=== PATIENT | male | born 1970 | race Caucasian/White ===

== ENCOUNTER 2017-01-15 05:40 | Inpatient (IN) | payer OTHER ==
[~2017-01-15] VITALS: Ht 175.3 cm; Wt 70.2 kg
[2017-01-15] MEDS ORDERED: SODIUM CHLORIDE 0.9% 1L BAG IV* STA (06:48)
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
[2017-01-15] MEDS ORDERED: VANCOMYCIN 1 GM (PMX) 250 ML IVPB ONE (07:00)
--- NOTE | 2017-01-15 07:16 | RADRPT ---
PROCEDURE: XR Chest. CLINICAL INDICATION: chest pain, fever TECHNIQUE: Single frontal view of the chest was obtained COMPARISON: None FINDINGS: The heart and mediastinum are within normal limits. There is a 6 mm nodular opacity overlying the left lower lobe. There is no pleural effusion or pneumothorax. RPTAT: AA IMPRESSION: 6 mm nodular opacity overlying the left lower lobe. It may represent a nipple shadow versus a third nodule. Repeat frontal chest x-ray with nipple markers recommended. .Gopi Aponte MD, MD Date Time Electronically viewed and signed by .Gopi Aponte MD, on 01/15/2017 07:15 .S/
--- NOTE | 2017-01-15 07:22 | RADRPT ---
PROCEDURE: XR Calcaneous. CLINICAL INDICATION: Pain TECHNIQUE: Two views of the right calcaneus were performed. COMPARISON: CR FOOT 11/03/2016 FINDINGS: There is soft tissue swelling posterior to the right calcaneus. There is air in the subcutaneous soft tissues with a focal skin ulceration. There is no evidence of periosteal reaction There is no acute fracture. RPTAT: AA IMPRESSION: Soft tissue swelling with a focal ulceration in the skin in the posterior right calcaneus. No evidence of periosteal reaction. Further evaluation with MRI is recommended to rule out osteomyelitis. .Gopi Aponte MD, Date Time Electronically viewed and signed by .Gopi Aponte MD, on 01/15/2017 07:21 .S/
[2017-01-15 08:23] LABS: BASOPHILS % 0.3 % (0.0-2.0); EOSINOPHILS % 0.1 % (0.0-7.0); HEMATOCRIT 35.7 % (42.0-52.0); HEMOGLOBIN 12.1 g/dl (14.0-18.0); LYMPHOCYTES # 0.8 10^3/ul (0.8-2.9); LYMPHOCYTES % 7.5 % (15.0-51.0); MEAN CORPUSCULAR HEMOGLOBIN 30.3 pg (29.0-33.0); MEAN CORPUSCULAR HGB CONC 33.9 g/dl (32.0-37.0); MEAN CORPUSCULAR VOLUME 89.3 fl (82.0-101.0); MONOCYTE # 0.7 10^3/ul (0.3-0.9); MONOCYTES % 6.3 % (0.0-11.0); NEUTROPHIL # 8.9 10^3/ul (1.6-7.5); NEUTROPHILS % 85.5 % (39.0-77.0); PLATELET COUNT 210 10^3/UL (140-415); RED CELL DISTRIBUTION WIDTH 12.1 % (11.5-14.5); WHITE BLOOD COUNT 10.4 10^3/ul (4.8-10.8)
[2017-01-15] MEDS ORDERED: CEFTRIAXONE 1 GM/50 ML (PMX) 50 ML IVPB ONE (08:30)
[2017-01-15 09:29] LABS: ALBUMIN 3.8 g/dl (3.3-4.9); BILIRUBIN,INDIRECT 0.5 mg/dl (0-1.1); BILIRUBIN,TOTAL 0.5 mg/dl (0.2-1.3); CALCIUM 8.8 mg/dl (8.4-10.2); CREATININE 1.12 mg/dl (0.61-1.24); POTASSIUM 4.6 mmol/L (3.5-5.1); TOTAL PROTEIN 7.6 g/dl (6.1-8.1)
[2017-01-15 09:50] LABS: ADD UMIC YES; UR ASCORBIC ACID NEGATIVE (NEGATIVE); UR BILIRUBIN (Dip) NEGATIVE (NEGATIVE); UR BLOOD (Dip) NEGATIVE (NEGATIVE); UR CLARITY CLEAR (CLEAR); UR COLOR YELLOW (YELLOW); UR GLUCOSE (Dip) 3+ mg/dL (NEGATIVE); UR KETONES (Dip) NEGATIVE (NEGATIVE); UR LEUKOCYTE ESTERASE (Dip) NEGATIVE Leu/ul (NEGATIVE); UR NITRITE (Dip) NEGATIVE (NEGATIVE); UR RBC 3 /HPF (0-5); UR SPECIFIC GRAVITY (Dip) 1.015 (1.003-1.030); UR TOTAL PROTEIN (Dip) 2+ mg/dl (NEGATIVE); UR UROBILINOGEN (Dip) NEGATIVE (NEGATIVE)
[2017-01-15 09:53] VITALS: PULSE 89; TEMP 98.2
[2017-01-15] MEDS ORDERED: ACETAMINOPHEN 325 MG TAB PO PRN (10:00)
[2017-01-15] MEDS ORDERED: ONDANSETRON 4 MG INJ IV PRN ×2 (10:00→12:30)
[2017-01-15 10:40] VITALS: BP 131/79; RESP 18
[2017-01-15 11:14] VITALS: Ht 175.3 cm; Wt 70.2 kg
[2017-01-15] MEDS ORDERED: Gabapentin PO (12:27)
[2017-01-15] MEDS ORDERED: Humalog SQ (12:27)
[2017-01-15] MEDS ORDERED: loratadine (12:27)
[2017-01-15] MEDS ORDERED: Multivitamin PO (12:27)
[2017-01-15] MEDS ORDERED: midodrine PO (12:27)
[2017-01-15] MEDS ORDERED: LANT3I SC (12:27)
[2017-01-15] MEDS ORDERED: morphine 2 MG INJ IV PRN (12:30)
[2017-01-15] MEDS ORDERED: BISACODYL (EC) 5 MG TAB PO PRN (12:30)
[2017-01-15] MEDS ORDERED: NACL 0.9% 3 ML SYG IV SCH (12:30)
[2017-01-15] MEDS ORDERED: GLUCOSE GEL 15 GRAM TUBE PO PRN ×2 (13:00)
[2017-01-15] MEDS ORDERED: VANCOMYCIN IV PER PHARMACY XX SCH (13:00)
[2017-01-15] MEDS ORDERED: GLUCOSE GEL 15 GRAM TUBE BUCCAL PRN (13:00)
[2017-01-15] MEDS ORDERED: DEXTROSE 50% 50 ML SYRINGE IV PRN ×2 (13:00)
[2017-01-15] MEDS ORDERED: GLUCAGON 1 MG INJ IM PRN (13:00)
[2017-01-15] MEDS: GABAPENTIN 300 MG CAP PO SCH ×2 (14:33→20:27)
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
[2017-01-15] MEDS: VANCOMYCIN 1 GM in NS 250 ML IVPB SCH (14:42)
[2017-01-15] MEDS: SOD CHLORIDE 0.45% 1,000 ML IV SCH (14:44)
[2017-01-15 14:50] VITALS: BP 136/71; RESP 20
--- NOTE | 2017-01-15 15:27 | RADRPT ---
PROCEDURE: XR Chest. CLINICAL INDICATION: Fever. Possible lung nodule or nipple shadow seen on prior chest x-ray. TECHNIQUE: Single frontal view obtained with nipple markers. COMPARISON: Prior chest x-ray done earlier the same day. FINDINGS: The 0.6 cm nodular density overlying the left lower lung zone is due to a nipple shadow. There is no other pulmonary nodule. The lungs are otherwise clear. The heart size is normal. There is no pleural effusion. There is no pneumothorax. IMPRESSION: 1. Normal chest radiograph. 2. The density seen on prior chest x-ray is due to a left nipple shadow. RPTAT: QQ .Aaron Amezquita MD, MD Date Time Electronically viewed and signed by .Aaron Amezquita MD, on 01/15/2017 15:26 .R/
[2017-01-15] MEDS: MIDODRINE 5 MG TAB PO SCH (17:00)
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
[2017-01-15] MEDS: PIPER-TAZO 3.375 GM IV (PMX) 100 ML IVPB SCH (17:18)
[2017-01-15] MEDS: INSULIN ASPART [NOVOLOG] 3 ML PEN SC SCH ×2 (18:03→20:28)
[2017-01-15 19:39] VITALS: BP 133/76; RESP 18
[2017-01-15] MEDS: INSULIN GLARGINE [LANtus] 3 ML PEN SC SCH (20:29)
[2017-01-16] MEDS: PIPER-TAZO 3.375 GM IV (PMX) 100 ML IVPB SCH ×3 (00:05→12:10)
[2017-01-16 01:54] VITALS: BP 130/68; RESP 18
[2017-01-16] MEDS: ACCU-CHEK XX SCH ×2 (02:00)
[2017-01-16] MEDS: VANCOMYCIN 1 GM in NS 250 ML IVPB SCH ×2 (02:19→14:13)
[2017-01-16] MEDS: SOD CHLORIDE 0.45% 1,000 ML IV SCH ×3 (04:48→19:06)
[2017-01-16 06:25] LABS: BASOPHILS % 0.4 % (0.0-2.0); EOSINOPHILS % 0.3 % (0.0-7.0); HEMATOCRIT 31.5 % (42.0-52.0); HEMOGLOBIN 10.6 g/dl (14.0-18.0); LYMPHOCYTES # 1.5 10^3/ul (0.8-2.9); LYMPHOCYTES % 16.5 % (15.0-51.0); MEAN CORPUSCULAR HEMOGLOBIN 30.1 pg (29.0-33.0); MEAN CORPUSCULAR HGB CONC 33.7 g/dl (32.0-37.0); MEAN CORPUSCULAR VOLUME 89.5 fl (82.0-101.0); MONOCYTE # 0.9 10^3/ul (0.3-0.9); MONOCYTES % 10.1 % (0.0-11.0); NEUTROPHIL # 6.7 10^3/ul (1.6-7.5); NEUTROPHILS % 72.4 % (39.0-77.0); PLATELET COUNT 188 10^3/UL (140-415); RED BLOOD COUNT 3.52 10^6/ul (4.70-6.10); RED CELL DISTRIBUTION WIDTH 12.3 % (11.5-14.5); WHITE BLOOD COUNT 9.3 10^3/ul (4.8-10.8)
[2017-01-16 06:43] LABS: ALBUMIN 2.9 g/dl (3.3-4.9); ALBUMIN/GLOBULIN RATIO 0.87; BILIRUBIN,INDIRECT 0.3 mg/dl (0-1.1); BILIRUBIN,TOTAL 0.3 mg/dl (0.2-1.3); CALCIUM 7.9 mg/dl (8.4-10.2); CREATININE 1.21 mg/dl (0.61-1.24); POTASSIUM 4.2 mmol/L (3.5-5.1); TOTAL PROTEIN 6.2 g/dl (6.1-8.1)
[2017-01-16 07:44] VITALS: BP 115/65; RESP 18
[2017-01-16] MEDS: INSULIN ASPART [NOVOLOG] 3 ML PEN SC SCH ×4 (08:13→20:32)
[2017-01-16] MEDS: GABAPENTIN 300 MG CAP PO SCH ×3 (08:15→20:24)
[2017-01-16] MEDS: MULTIVITAMINS/MINERALS TAB PO SCH (08:15)
[2017-01-16] MEDS: LORATADINE 10 MG TAB PO SCH (08:15)
[2017-01-16] MEDS: MIDODRINE 5 MG TAB PO SCH ×2 (08:15→17:00)
[2017-01-16] MEDS: ENOXAPARIN 40 MG/0.4 ML SYG SC SCH (08:17)
[2017-01-16 08:56] VITALS: BP 99/56; RESP 18
[2017-01-16 14:05] VITALS: BP 142/80; RESP 20
[2017-01-16] MEDS ORDERED: LEVOFLOXACIN 500 MG TAB PO ONE (14:30)
--- NOTE | 2017-01-16 15:16 | PN ---
Date/Time of Note Date/Time of Note DATE: 01/16/17 TIME: 15:16 Assessment/Plan VTE Prophylaxis VTE Prophylaxis Intervention: heparin Lines/Catheters IV Catheter Type (from Nrs): Peripheral IV Assessment/Plan Chief Complaint/Hosp Course Patient is a 46-year-old male past medical history of ulcer myelitis who presents with subjective fevers. Admitted for possible new onset osteomyelitis Subjective fever, monitoring Bilateral foot ulcers , right heel and left dorsal aspect acute on chronic Hypertension Diabetes mellitus History of osteo-myelitis Diabetic neuropathy Cataracts Plan -IV antibiotics, ID has been consulted -X-ray is not conclusive, will order MRI -We will continue home meds as able -Blood cultures has been taken -Wound cultures if possible -As needed pain medications -We will monitor and dispose accordingly -If no osteomyelitis, likely DC patient back to outpatient wound care. dispo: still pending Mri Problems: Subjective 24 Hr Interval Summary Free Text/Dictation feels well Exam/Review of Systems Vital Signs Vitals Vital Signs Date Time Temp Pulse Resp B/P Pulse Ox O2 Delivery O2 Flow Rate FiO2 01/16/17 14:05 98.3 80 20 142/80 99 01/15/17 09:53 Room Air Intake and Output 01/15/17 01/15/17 01/16/17 15:00 23:00 07:00 Intake Total 2050 ml 1730 ml 1150 ml Output Total 350 ml 600 ml Balance 2050 ml 1380 ml 550 ml Exam Physical exam General: Patient is laying in bed and answers questions appropriately Mentation: Patient is alert and oriented 4, Head: Normocephalic atraumatic Eyes: EOMI, pupils reactive to light Neck: Supple, nontender, midline Respiratory: Clear to auscultation bilaterally Cardiovascular: regular rate, no obvious murmurs Gastrointestinal: non-tender to palpation, bowel sounds heard. Neurological: Moves all extremities spontaneously Skin: L foot dorsal aspect ulcer, non purulent. R foot heel area ulcer, non- purulent. Results Result Diagram: 01/16/1738 01/16/1738 Results 24 hrs Laboratory Tests Test 01/15/17 17:50 01/15/17 20:26 01/16/17 05:38 01/16/17 07:54 Bedside Glucose 142 175 76 White Blood Count 9.3 Red Blood Count 3.52 L Hemoglobin 10.6 L Hematocrit 31.5 L Mean Corpuscular Volume 89.5 Mean Corpuscular Hemoglobin 30.1 Mean Corpuscular Hemoglobin Concent 33.7 Red Cell Distribution Width 12.3 Platelet Count 188 Mean Platelet Volume 10.0 Neutrophils % 72.4 Lymphocytes % 16.5 Monocytes % 10.1 Eosinophils % 0.3 Basophils % 0.4 Nucleated Red Blood Cells % 0.0 Neutrophils # 6.7 Lymphocytes # 1.5 Monocytes # 0.9 Eosinophils # 0.0 Basophils # 0.0 Nucleated Red Blood Cells # 0.0 Erythrocyte Sedimentation Rate 38.0 H Sodium Level 137 Potassium Level 4.2 Chloride Level 107 Carbon Dioxide Level 27 Anion Gap 7 #L Blood Urea Nitrogen 20 # Creatinine 1.21 Glucose Level 74 # Hemoglobin A1c 6.5 H Calcium Level 7.9 L Total Bilirubin 0.3 Direct Bilirubin 0.00 Indirect Bilirubin 0.3 Aspartate Amino Transf (AST/SGOT) 21 Alanine Aminotransferase (ALT/SGPT) 37 Alkaline Phosphatase 72 C-Reactive Protein 5.0 H Total Protein 6.2 # Albumin 2.9 L Globulin 3.30 H Albumin/Globulin Ratio 0.87 Test 01/16/17 12:04 Bedside Glucose 115 Medications Medications Current Medications Influenza Virus Vaccine (Fluzone) 0.5 ml ONCE ONCE IM* ; Start 01/17/17 at 09: 00; Stop 01/17/17 at 09:01 Ondansetron HCl (Zofran Inj) 4 mg Q6H PRN IV NAUSEA AND/OR VOMITING; Start 01/15/17 at 12:30 Morphine Sulfate (morphine) 2 mg Q4H PRN IV SEVERE PAIN LEVEL 7-10; Start 01/15 at 12:30 Bisacodyl (Dulcolax) 5 mg DAILY PRN PO CONSTIPATION; Start 01/15/17 at 12:30 Enoxaparin Sodium (Lovenox) 40 mg DAILY SC Last administered on 01/16/17t 08: 17; Admin Dose 40 MG; Start 01/16/17 at 09:00 Diagnostic Test (Pha) (Accu-Chek) 1 ea 02 XX ; Start 01/16/17 at 02:00 Insulin Glargine (Lantus) 12 unit QHS SC Last administered on 01/15/17t 20:29; Admin Dose 12 UNIT; Start 01/15/17 at 21:00 Diagnostic Test (Pha) (Accu-Chek) 1 ea 02 XX ; Start 01/16/17 at 02:00 Gabapentin (Neurontin) 300 mg TID PO Last administered on 01/16/17 12:11; Admin Dose 300 MG; Start 01/15/17 at 13:00 Midodrine (Proamatine) 5 mg BID@ PO Last administered on 01/16/17 08:15 ; Admin Dose 5 MG; Start 01/15/17 at 17:00 Loratadine (Claritin) 10 mg DAILY PO Last administered on 01/16/17 08:15; Admin Dose 10 MG; Start 01/16/17 at 09:00 Multivitamins/ Minerals (Theragran-M) 1 tab DAILY PO Last administered on 01/16 08:15; Admin Dose 1 TAB; Start 01/16/17 at 09:00 Miscellaneous Information 1 ea NOTE XX ; Start 01/15/17 at 13:00 Glucose (Glutose) 15 gm Q15M PRN PO DECREASED GLUCOSE; Start 01/15/17 at 13:00 Glucose (Glutose) 22.5 gm Q15M PRN PO DECREASED GLUCOSE; Start 01/15/17 at 13: 00 Dextrose (D50w Syringe) 25 ml Q15M PRN IV DECREASED GLUCOSE; Start 01/15/17 at 13:00 Dextrose (D50w Syringe) 50 ml Q15M PRN IV DECREASED GLUCOSE; Start 01/15/17 at 13:00 Glucagon (Glucagen) 1 mg Q15M PRN IM DECREASED GLUCOSE; Start 01/15/17 at 13:00 Glucose 15 gm 15 gm Q15M PRN BUCCAL DECREASED GLUCOSE; Start 01/15/17 at 13:00 Vancomycin HCl 250 ml @ 125 mls/hr Q12H IVPB Last administered on 01/16/17 14:13; Admin Dose 125 MLS/HR; Start 01/15/17 at 14:00 Sodium Chloride (1/2 NS) 1,000 ml @ 70 mls/hr [id number] IV Last administered on 01/16/17 12:10; Admin Dose 70 MLS/HR; Start 01/15/17 at 14:30 Miscellaneous Information (*Rx Drug Level Order Reminder*) 1 ONCE ONCE XX ; Start 01/17/17 at 01:00; Stop 01/17/17 at 01:01 Levofloxacin (Levaquin) 500 mg DAILY@06 PO ; Start 01/16/17 at 14:27 EDWAR ELAM Jan 16, 2017 15:16
--- NOTE | 2017-01-16 16:01 | PN ---
DATE: 01/16/2017 INFECTIOUS DISEASE PROGRESS NOTE SUBJECTIVE: No events overnight. The patient is alert, feels better. Looks comfortable, no fevers . WBC 9.3, no shift. ESR 38, BUN 20, creatinine 1.21. MICROBIOLOGY: Blood and urine culture negative. ANTIMICROBIALS: The patient is on: 1. Zosyn. 2. Vancomycin. PHYSICAL EXAMINATION: GENERAL: Well-developed, well-nourished, middle-aged man who is alert, in no distress. HEENT: Head atraumatic, normocephalic. Sclerae anicteric. Buccal mucosa pink. NECK: Supple. CHEST: Rise symmetrical. Breath sounds clear. HEART: S1, S2. ABDOMEN: Soft. Bowel tones present. EXTREMITIES: Bilateral lower extremity dressings intact. ASSESSMENT: 1. Bilateral lower extremity ulcerations with a history of skin graft on his left foot. 2. Hypertension. 3. Diabetes. 4. History of osteomyelitis. PLAN: The patient remains stable. We will continue him on vancomycin, change Zosyn to Levaquin. A wait for final cultures and podiatry evaluation. Dictated By: EDWIN SCOTT FURNACE SETTER for CHRISTOPHER OLEARY MD NI/NTS Conf#: [id number] DID#: [id number]
[2017-01-16] MEDS: LEVOFLOXACIN 500 MG TAB PO SCH (16:16)
[2017-01-16 19:27] VITALS: BP 143/80; RESP 18
[2017-01-16] MEDS: INSULIN GLARGINE [LANtus] 3 ML PEN SC SCH (20:32)
[2017-01-17 01:45] VITALS: BP 121/70; RESP 18
[2017-01-17] MEDS: VANCOMYCIN 1 GM in NS 250 ML IVPB SCH ×2 (01:58→14:38)
[2017-01-17] MEDS: ACCU-CHEK XX SCH ×2 (01:59)
[2017-01-17] MEDS: LEVOFLOXACIN 500 MG TAB PO SCH (05:43)
[2017-01-17 06:25] LABS: CREATININE 1.21 mg/dl (0.61-1.24)
[2017-01-17] MEDS: INSULIN ASPART [NOVOLOG] 3 ML PEN SC SCH ×4 (08:05→20:40)
[2017-01-17] MEDS: LORATADINE 10 MG TAB PO SCH (08:07)
[2017-01-17] MEDS: MIDODRINE 5 MG TAB PO SCH ×2 (08:07→17:00)
[2017-01-17] MEDS: GABAPENTIN 300 MG CAP PO SCH ×3 (08:07→20:38)
[2017-01-17 08:09] VITALS: BP 119/70; RESP 18
[2017-01-17] MEDS: ENOXAPARIN 40 MG/0.4 ML SYG SC SCH (08:19)
[2017-01-17] MEDS: MULTIVITAMINS/MINERALS TAB PO SCH (08:21)
--- NOTE | 2017-01-17 08:41 | RADRPT ---
PROCEDURE: MRI OF THE RIGHT ANKLE CLINICAL INDICATION: Diabetic foot infection. Bilateral open ulcer with infection. Right hind foot a nd left forefoot. Prior bilateral foot skin graft times 2 years. TECHNIQUE: Multiple MRI images were obtained utilizing multiple sequences in multiple planes. Image s were interpreted on a high-resolution PACS system. COMPARISON: None. FINDINGS: Tendons: There is chronic Achilles tendonitis. No evidence for tear. Osseous structures: There is soft tissue ulceration at the posterior heel and there is adjacent bone destructive change of the calcaneal tuberosity with underlying bone marrow edema. Findings are cons istent with osteomyelitis. No other evidence for osteomyelitis identified within the remaining bones of the left hindfoot and midfoot. There is a small subcutaneous fluid collection measuring 5 mm see n on sagittal image number 13. No drainable fluid collection is identified. No evidence for abscess or gangrene. Ligaments: There is an old sprain of the anterior talofibular ligament, calcaneofibular ligament an d deltoid ligament. No acute change and no complete disruption identified. Plantar fascia: The plantar fascia is intact. No evidence for fasciosis or tear. The calcaneus ap pears normal without osteitis. The soft tissues around the plantar fascia appear normal without stephanie ma. There is no evidence for denervation. Other findings: The sinus tarsi appears normal. No mass in the tarsal tunnel identified. IMPRESSION: 1. Soft tissue ulceration of the posterior heel with adjacent osteomyelitis of the calcaneal tubero sity. 2. No other evidence for osteomyelitis identified. 3. 5 mm fluid collection within the subcutaneous soft tissues adjacent to the ulceration. No draina ble fluid collection is seen. RPTAT: XX .Perfecto Lamra MD, Date Time Electronically viewed and signed by .Perfecto Lamar MD, on 01/17/2017 08:41 .T/
--- NOTE | 2017-01-17 08:47 | RADRPT ---
AMENDMENT: 01/17/2017 8:49:32 AM Perfecto Lamar M.D The clinical indication was inadvertently omitted. Osteomyelitis of the left forefoot. Ulceration. T he patient is a diabetic. PROCEDURE: MRI OF THE LEFT FOOT. CLINICAL INDICATION: TECHNIQUE: Multiple MRI images of the left foot were obtained in multiple planes utilizing multipl e pulse sequences. Images were interpreted on the high-resolution PACS system. COMPARISON: None. FINDINGS: There is soft tissue ulceration of the dorsal aspect of the left midfoot forefoot junction. There is bone destructive change of the dorsal first metatarsal seen on sagittal image number 21 and axial i mage #7 and of the medial cuneiform seen on the same images. There is adjacent soft tissue celluliti s. No abscess is seen. No drainable fluid collection is identified. There is preexisting moderately advanced arthrosis of the first metatarsal phalangeal joint. Lack of significant synovitis or joint effusion argues against first metatarsal phalangeal joint septic arthritis with polyostotic osteomye litis. IMPRESSION: 1. Osteomyelitis of the dorsal aspect of the medial cuneiform and first metatarsal. 2. Adjacent soft tissue swelling consistent with cellulitis. 3. No drainable fluid collection is seen per 4. Moderately advanced arthrosis of the first metatarsal phalangeal joint. RPTAT: XX .Perfecto Lamar MD, Date Time Electronically viewed and signed by .Perfecto Lamar MD, on 01/17/2017 08:49 .T/
[2017-01-17] MEDS ORDERED: INFLUENZA VIRUS VACCINE 0.5 ML (DISPENSING) IM* ONE (09:00)
[2017-01-17] MEDS: SOD CHLORIDE 0.45% 1,000 ML IV SCH ×3 (09:24→23:42)
--- NOTE | 2017-01-17 13:44 | PN ---
Date/Time of Note Date/Time of Note DATE: 01/17/17 TIME: 13:42 Assessment/Plan VTE Prophylaxis VTE Prophylaxis Intervention: LMWH Lines/Catheters IV Catheter Type (from Nrs): Peripheral IV Assessment/Plan Chief Complaint/Hosp Course Patient is a 46-year-old male past medical history of ulcer myelitis who presents with subjective fevers. Admitted for possible new onset osteomyelitis Subjective fever, monitoring Bilateral foot ulcers , right heel and left dorsal aspect acute on chronic bilateral foot osteomyelitis Hypertension Diabetes mellitus History of osteo-myelitis Diabetic neuropathy Cataracts Plan -Dr. Marisa Thomas's group has been consulted. pending recs on osteo seen on MRI given patient is seeing them outpatient -ID recs for abx -We will continue home meds as able -Blood cultures has been taken -Wound cultures if possible -As needed pain medications -We will monitor and dispose accordingly dispo: pending pod consult Problems: Subjective 24 Hr Interval Summary Free Text/Dictation feels well Exam/Review of Systems Vital Signs Vitals Vital Signs Date Time Temp Pulse Resp B/P Pulse Ox O2 Delivery O2 Flow Rate FiO2 01/17/17 08:09 97.4 85 18 119/70 98 01/15/17 09:53 Room Air Intake and Output 01/16/17 01/16/17 01/17/17 15:00 23:00 07:00 Intake Total 400 ml 2820 ml 1150 ml Output Total 2600 ml 500 ml Balance 400 ml 220 ml 650 ml Exam Physical exam General: Patient is laying in bed and answers questions appropriately Mentation: Patient is alert and oriented 4, Head: Normocephalic atraumatic Eyes: EOMI, pupils reactive to light Neck: Supple, nontender, midline Respiratory: Clear to auscultation bilaterally Cardiovascular: regular rate, no obvious murmurs Gastrointestinal: non-tender to palpation, bowel sounds heard. Neurological: Moves all extremities spontaneously Skin: L foot dorsal aspect ulcer, non purulent. R foot heel area ulcer, non- purulent. Results Result Diagram: 01/16/17 0538 01/17/17 0526 Results 24 hrs Laboratory Tests Test 01/16/17 17:40 01/16/17 20:20 01/17/17 00:50 01/17/17 05:26 Bedside Glucose 140 162 Vancomycin Level Trough 15.7 Blood Urea Nitrogen 18 Creatinine 1.21 Test 01/17/17 08:04 01/17/17 12:15 Bedside Glucose 81 196 Medications Medications Current Medications Ondansetron HCl (Zofran Inj) 4 mg Q6H PRN IV NAUSEA AND/OR VOMITING; Start 01/15/17 at 12:30 Morphine Sulfate (morphine) 2 mg Q4H PRN IV SEVERE PAIN LEVEL 7-10; Start 01/15 at 12:30 Bisacodyl (Dulcolax) 5 mg DAILY PRN PO CONSTIPATION; Start 01/15/17 at 12:30 Enoxaparin Sodium (Lovenox) 40 mg DAILY SC Last administered on 01/17/17 08: 19; Admin Dose 40 MG; Start 01/16/17 at 09:00 Diagnostic Test (Pha) (Accu-Chek) 1 ea 02 XX ; Start 01/16/17 at 02:00 Insulin Glargine (Lantus) 12 unit QHS SC Last administered on 01/16/17 20:32 ; Admin Dose 12 UNIT; Start 01/15/17 at 21:00 Diagnostic Test (Pha) (Accu-Chek) 1 ea 02 XX ; Start 01/16/17 at 02:00 Gabapentin (Neurontin) 300 mg TID PO Last administered on 01/17/17 13:17; Admin Dose 300 MG; Start 01/15/17 at 13:00 Midodrine (Proamatine) 5 mg BID@,17 PO Last administered on 01/17/17 08:07 ; Admin Dose 5 MG; Start 01/15/17 at 17:00 Loratadine (Claritin) 10 mg DAILY PO Last administered on 01/17/17 08:07; Admin Dose 10 MG; Start 01/16/17 at 09:00 Multivitamins/ Minerals (Theragran-M) 1 tab DAILY PO Last administered on 01/17 08:21; Admin Dose 1 TAB; Start 01/16/17 at 09:00 Miscellaneous Information 1 ea NOTE XX ; Start 01/15/17 at 13:00 Glucose (Glutose) 15 gm Q15M PRN PO DECREASED GLUCOSE; Start 01/15/17 at 13:00 Glucose (Glutose) 22.5 gm Q15M PRN PO DECREASED GLUCOSE; Start 01/15/17 at 13: 00 Dextrose (D50w Syringe) 25 ml Q15M PRN IV DECREASED GLUCOSE; Start 01/15/17 at 13:00 Dextrose (D50w Syringe) 50 ml Q15M PRN IV DECREASED GLUCOSE; Start 01/15/17 at 13:00 Glucagon (Glucagen) 1 mg Q15M PRN IM DECREASED GLUCOSE; Start 01/15/17 at 13:00 Glucose 15 gm 15 gm Q15M PRN BUCCAL DECREASED GLUCOSE; Start 01/15/17 at 13:00 Vancomycin HCl 250 ml @ 125 mls/hr Q12H IVPB Last administered on 01/17/17 01:58; Admin Dose 125 MLS/HR; Start 01/15/17 at 14:00 Sodium Chloride (1/2 NS) 1,000 ml @ 70 mls/hr [id number] IV Last administered on 01/16/17 12:10; Admin Dose 70 MLS/HR; Start 01/15/17 at 14:30 Levofloxacin (Levaquin) 500 mg DAILY@06 PO Last administered on 01/17/17 05: 43; Admin Dose 500 MG; Start 01/16/17 at 14:27 EDWAR ELAM Jan 17, 2017 13:44
[2017-01-17 13:59] VITALS: BP 139/79; RESP 18
[2017-01-17 20:36] VITALS: BP 162/89; RESP 18
[2017-01-17] MEDS: INSULIN GLARGINE [LANtus] 3 ML PEN SC SCH (20:39)
--- NOTE | 2017-01-17 22:30 | CONS ---
Date/Time of Note Date/Time of Note DATE: 01/17/17 TIME: 22:26 Assessment/Plan Assessment/Plan Chief Complaint/Hosp Course SUBJECTIVE: No events overnight. The patient is alert, feels good, Looks comfortable, no fevers. MICROBIOLOGY: Blood and urine culture negative. ANTIMICROBIALS: 1. Levaquin 2. Vancomycin. PHYSICAL EXAMINATION: GENERAL: Well-developed, well-nourished, middle-aged man who is alert , in no distress. HEENT: Head atraumatic, normocephalic. Sclerae anicteric. Buccal mucosa pink. NECK: Supple. CHEST: Rise symmetrical. Breath sounds clear. HEART: S1, S2. ABDOMEN: Soft. Bowel tones present. EXTREMITIES: Bilateral lower extremity dressings intact. ASSESSMENT: 1. Bilateral lower extremity ulcerations with a history of skin graft on his left foot. 2. Hypertension. 3. Diabetes. 4. BLE osteomyelitis. PLAN: The patient remains stable. Continue abx, f/u podiatry rec-s, pt will require 6-8 wks IV abx DW staff Problems: Consultation Date/Type/Reason Admit Date/Time Jan 16, 2017 at 14:43 Initial Consult Date Type of Consultation: ID Exam/Review of Systems Vital Signs Vitals Vital Signs Date Time Temp Pulse Resp B/P Pulse Ox O2 Delivery O2 Flow Rate FiO2 01/17/17 20:36 98.0 76 18 162/89 98 01/15/17 09:53 Room Air Intake and Output 01/16/17 01/16/17 01/17/17 15:00 23:00 07:00 Intake Total 400 ml 2820 ml 1150 ml Output Total 2600 ml 500 ml Balance 400 ml 220 ml 650 ml Results Result Diagram: 01/16/17 0538 01/17/17 0526 Results 24 hrs Laboratory Tests Test 01/17/17 00:50 01/17/17 05:26 01/17/17 08:04 01/17/17 12:15 Vancomycin Level Trough 15.7 Blood Urea Nitrogen 18 Creatinine 1.21 Bedside Glucose 81 196 Test 01/17/17 17:31 01/17/17 20:32 Bedside Glucose 136 201 Medications Medications Current Medications Ondansetron HCl (Zofran Inj) 4 mg Q6H PRN IV NAUSEA AND/OR VOMITING; Start 01/15/17 at 12:30 Morphine Sulfate (morphine) 2 mg Q4H PRN IV SEVERE PAIN LEVEL 7-10; Start 01/15 at 12:30 Bisacodyl (Dulcolax) 5 mg DAILY PRN PO CONSTIPATION; Start 01/15/17 at 12:30 Enoxaparin Sodium (Lovenox) 40 mg DAILY SC Last administered on 01/17/17 08: 19; Admin Dose 40 MG; Start 01/16/17 at 09:00 Diagnostic Test (Pha) (Accu-Chek) 1 ea 02 XX ; Start 01/16/17 at 02:00 Insulin Glargine (Lantus) 12 unit QHS SC Last administered on 01/17/17 20:39 ; Admin Dose 12 UNIT; Start 01/15/17 at 21:00 Diagnostic Test (Pha) (Accu-Chek) 1 ea 02 XX ; Start 01/16/17 at 02:00 Gabapentin (Neurontin) 300 mg TID PO Last administered on 01/17/17 20:38; Admin Dose 300 MG; Start 01/15/17 at 13:00 Midodrine (Proamatine) 5 mg BID@ PO Last administered on 01/17/17 08:07 ; Admin Dose 5 MG; Start 01/15/17 at 17:00 Loratadine (Claritin) 10 mg DAILY PO Last administered on 01/17/17 08:07; Admin Dose 10 MG; Start 01/16/17 at 09:00 Multivitamins/ Minerals (Theragran-M) 1 tab DAILY PO Last administered on 01/17 08:21; Admin Dose 1 TAB; Start 01/16/17 at 09:00 Miscellaneous Information 1 ea NOTE XX ; Start 01/15/17 at 13:00 Glucose (Glutose) 15 gm Q15M PRN PO DECREASED GLUCOSE; Start 01/15/17 at 13:00 Glucose (Glutose) 22.5 gm Q15M PRN PO DECREASED GLUCOSE; Start 01/15/17 at 13: 00 Dextrose (D50w Syringe) 25 ml Q15M PRN IV DECREASED GLUCOSE; Start 01/15/17 at 13:00 Dextrose (D50w Syringe) 50 ml Q15M PRN IV DECREASED GLUCOSE; Start 01/15/17 at 13:00 Glucagon (Glucagen) 1 mg Q15M PRN IM DECREASED GLUCOSE; Start 01/15/17 at 13:00 Glucose 15 gm 15 gm Q15M PRN BUCCAL DECREASED GLUCOSE; Start 01/15/17 at 13:00 Vancomycin HCl 250 ml @ 125 mls/hr Q12H IVPB Last administered on 01/17/17 14:38; Admin Dose 125 MLS/HR; Start 01/15/17 at 14:00 Sodium Chloride (1/2 NS) 1,000 ml @ 70 mls/hr [id number] IV Last administered on 01/17/17 19:42; Admin Dose 70 MLS/HR; Start 01/15/17 at 14:30 Levofloxacin (Levaquin) 500 mg DAILY@06 PO Last administered on 01/17/17 05: 43; Admin Dose 500 MG; Start 01/16/17 at 14:27 EDWIN SCOTT NP Jan 17, 2017 22:30
[2017-01-18 02:00] VITALS: BP 127/75; RESP 18
[2017-01-18] MEDS: ACCU-CHEK XX SCH ×2 (02:20)
[2017-01-18] MEDS: VANCOMYCIN 1 GM in NS 250 ML IVPB SCH ×2 (02:20→13:21)
[2017-01-18] MEDS: LEVOFLOXACIN 500 MG TAB PO SCH (05:38)
[2017-01-18 05:47] LABS: BASOPHILS % 0.4 % (0.0-2.0); EOSINOPHILS # 0.4 10^3/ul (0.0-0.5); EOSINOPHILS % 7.7 % (0.0-7.0); HEMATOCRIT 29.9 % (42.0-52.0); HEMOGLOBIN 10.3 g/dl (14.0-18.0); LYMPHOCYTES # 1.5 10^3/ul (0.8-2.9); LYMPHOCYTES % 32.3 % (15.0-51.0); MEAN CORPUSCULAR HEMOGLOBIN 29.9 pg (29.0-33.0); MEAN CORPUSCULAR HGB CONC 34.4 g/dl (32.0-37.0); MEAN CORPUSCULAR VOLUME 86.7 fl (82.0-101.0); MEAN PLATELET VOLUME 9.8 fl (7.4-10.4); MONOCYTE # 0.7 10^3/ul (0.3-0.9); MONOCYTES % 14.8 % (0.0-11.0); NEUTROPHIL # 2.1 10^3/ul (1.6-7.5); NEUTROPHILS % 44.6 % (39.0-77.0); PLATELET COUNT 197 10^3/UL (140-415); RED BLOOD COUNT 3.45 10^6/ul (4.70-6.10); RED CELL DISTRIBUTION WIDTH 12.2 % (11.5-14.5); WHITE BLOOD COUNT 4.7 10^3/ul (4.8-10.8)
[2017-01-18 06:00] LABS: CALCIUM 8.7 mg/dl (8.4-10.2); CREATININE 1.04 mg/dl (0.61-1.24); MAGNESIUM 1.6 mg/dl (1.7-2.5); PHOSPHORUS 4.5 mg/dl (2.5-4.9); POTASSIUM 4.2 mmol/L (3.5-5.1)
[2017-01-18 08:11] VITALS: BP 141/78; RESP 17
[2017-01-18] MEDS: INSULIN ASPART [NOVOLOG] 3 ML PEN SC SCH ×4 (08:15→21:09)
[2017-01-18] MEDS: LORATADINE 10 MG TAB PO SCH (08:24)
[2017-01-18] MEDS: GABAPENTIN 300 MG CAP PO SCH ×3 (08:24→20:55)
[2017-01-18] MEDS: MIDODRINE 5 MG TAB PO SCH ×2 (08:24→16:26)
[2017-01-18] MEDS: MULTIVITAMINS/MINERALS TAB PO SCH (08:25)
[2017-01-18] MEDS: ENOXAPARIN 40 MG/0.4 ML SYG SC SCH (08:26)
[2017-01-18] MEDS ORDERED: LIDOCAINE 1% (MPF) 5 ML VIAL SC ONE (09:30)
--- NOTE | 2017-01-18 12:42 | CONS ---
Date/Time of Note Date/Time of Note DATE: 01/18/17 TIME: 12:41 Assessment/Plan Assessment/Plan Chief Complaint/Hosp Course SUBJECTIVE: No events overnight. The patient is alert, feels good, Looks comfortable, no fevers. MICROBIOLOGY: Blood and urine culture negative, wound cx pending. ANTIMICROBIALS: 1. Levaquin 2. Vancomycin. PHYSICAL EXAMINATION: GENERAL: Well-developed, well-nourished, middle-aged man who is alert , in no distress. HEENT: Head atraumatic, normocephalic. Sclerae anicteric. Buccal mucosa pink. NECK: Supple. CHEST: Rise symmetrical. Breath sounds clear. HEART: S1, S2. ABDOMEN: Soft. Bowel tones present. EXTREMITIES: Bilateral lower extremity dressings intact. ASSESSMENT: 1. Bilateral lower extremity OM with a history of skin graft on his left foot. 2. Hypertension. 3. Diabetes. PLAN: The patient remains stable. Continue abx, f/u podiatry rec-s, pt will require 6-8 wks IV abx, pending PICC, pending final cx DW staff Problems: Consultation Date/Type/Reason Admit Date/Time Jan 16, 2017 at 14:43 Type of Consultation: ID Exam/Review of Systems Vital Signs Vitals Vital Signs Date Time Temp Pulse Resp B/P Pulse Ox O2 Delivery O2 Flow Rate FiO2 01/18/17 08:11 97.6 77 17 141/78 94 01/15/17 09:53 Room Air Intake and Output 01/17/17 01/17/17 01/18/17 15:00 23:00 07:00 Intake Total 1560 ml 1440 ml Output Total 1200 ml 600 ml Balance 360 ml 840 ml Results Result Diagram: 01/18/17 0522 01/18/17 0522 Results 24 hrs Laboratory Tests Test 01/17/17 17:31 01/17/17 20:32 01/18/17 01:01 01/18/17 05:22 Bedside Glucose 136 201 114 White Blood Count 4.7 #L Red Blood Count 3.45 L Hemoglobin 10.3 L Hematocrit 29.9 L Mean Corpuscular Volume 86.7 Mean Corpuscular Hemoglobin 29.9 Mean Corpuscular Hemoglobin Concent 34.4 Red Cell Distribution Width 12.2 Platelet Count 197 Mean Platelet Volume 9.8 Neutrophils % 44.6 Lymphocytes % 32.3 Monocytes % 14.8 H Eosinophils % 7.7 H Basophils % 0.4 Nucleated Red Blood Cells % 0.0 Neutrophils # 2.1 Lymphocytes # 1.5 Monocytes # 0.7 Eosinophils # 0.4 Basophils # 0.0 Nucleated Red Blood Cells # 0.0 Sodium Level 137 Potassium Level 4.2 Chloride Level 107 Carbon Dioxide Level 27 Anion Gap 7 L Blood Urea Nitrogen 19 Creatinine 1.04 Glucose Level 145 # Calcium Level 8.7 Phosphorus Level 4.5 Magnesium Level 1.6 L Test 01/18/17 08:20 01/18/17 11:57 Bedside Glucose 106 167 Medications Medications Current Medications Ondansetron HCl (Zofran Inj) 4 mg Q6H PRN IV NAUSEA AND/OR VOMITING; Start 01/15/17 at 12:30 Morphine Sulfate (morphine) 2 mg Q4H PRN IV SEVERE PAIN LEVEL 7-10; Start 01/15 at 12:30 Bisacodyl (Dulcolax) 5 mg DAILY PRN PO CONSTIPATION; Start 01/15/17 at 12:30 Enoxaparin Sodium (Lovenox) 40 mg DAILY SC Last administered on 01/18/17 08: 26; Admin Dose 40 MG; Start 01/16/17 at 09:00 Diagnostic Test (Pha) (Accu-Chek) 1 ea 02 XX Last administered on 01/18/17 02 :20; Admin Dose 1 EA; Start 01/16/17 at 02:00 Insulin Glargine (Lantus) 12 unit QHS SC Last administered on 01/17/17 20:39 ; Admin Dose 12 UNIT; Start 01/15/17 at 21:00 Diagnostic Test (Pha) (Accu-Chek) 1 ea 02 XX Last administered on 01/18/17 02 :20; Admin Dose 1 EA; Start 01/16/17 at 02:00 Gabapentin (Neurontin) 300 mg TID PO Last administered on 01/18/17 12:02; Admin Dose 300 MG; Start 01/15/17 at 13:00 Midodrine (Proamatine) 5 mg BID@ PO Last administered on 01/17/17 08:07 ; Admin Dose 5 MG; Start 01/15/17 at 17:00 Loratadine (Claritin) 10 mg DAILY PO Last administered on 01/18/17 08:24; Admin Dose 10 MG; Start 01/16/17 at 09:00 Multivitamins/ Minerals (Theragran-M) 1 tab DAILY PO Last administered on 01/18 08:25; Admin Dose 1 TAB; Start 01/16/17 at 09:00 Miscellaneous Information 1 ea NOTE XX ; Start 01/15/17 at 13:00 Glucose (Glutose) 15 gm Q15M PRN PO DECREASED GLUCOSE; Start 01/15/17 at 13:00 Glucose (Glutose) 22.5 gm Q15M PRN PO DECREASED GLUCOSE; Start 01/15/17 at 13: 00 Dextrose (D50w Syringe) 25 ml Q15M PRN IV DECREASED GLUCOSE; Start 01/15/17 at 13:00 Dextrose (D50w Syringe) 50 ml Q15M PRN IV DECREASED GLUCOSE; Start 01/15/17 at 13:00 Glucagon (Glucagen) 1 mg Q15M PRN IM DECREASED GLUCOSE; Start 01/15/17 at 13:00 Glucose 15 gm 15 gm Q15M PRN BUCCAL DECREASED GLUCOSE; Start 01/15/17 at 13:00 Vancomycin HCl 250 ml @ 125 mls/hr Q12H IVPB Last administered on 01/18/17 02:20; Admin Dose 125 MLS/HR; Start 01/15/17 at 14:00 Sodium Chloride (1/2 NS) 1,000 ml @ 70 mls/hr [id number] IV Last administered on 01/17/17 19:42; Admin Dose 70 MLS/HR; Start 01/15/17 at 14:30 Levofloxacin (Levaquin) 500 mg DAILY@06 PO Last administered on 01/18/17 05: 38; Admin Dose 500 MG; Start 01/16/17 at 14:27 Miscellaneous Information (*Rx Drug Level Order Reminder*) VANCO TROUGH @ 1, 300 ON ... ONCE ONCE XX ; Start 01/19/17 at 13:00; Stop 01/19/17 at 13:01 EDWIN SCOTT NP Jan 18, 2017 12:42
--- NOTE | 2017-01-18 13:04 | PN ---
Date/Time of Note Date/Time of Note DATE: 01/18/17 TIME: 13:03 Assessment/Plan VTE Prophylaxis VTE Prophylaxis Intervention: LMWH Lines/Catheters IV Catheter Type (from Nrs): Peripheral IV Assessment/Plan Chief Complaint/Hosp Course Patient is a 46-year-old male past medical history of ulcer myelitis who presents with subjective fevers. Admitted for possible new onset osteomyelitis Subjective fever, monitoring Bilateral foot ulcers , right heel and left dorsal aspect acute on chronic bilateral foot osteomyelitis Hypertension Diabetes mellitus History of osteo-myelitis Diabetic neuropathy Cataracts Plan -Dr. Marisa Thomas's group has been consulted. pending recs on osteo seen on MRI given patient is seeing them outpatient -ID recs for abx -We will continue home meds as able -Blood cultures has been taken -Wound cultures if possible -As needed pain medications -We will monitor and dispose accordingly dispo: pending pod consult Problems: Subjective 24 Hr Interval Summary Free Text/Dictation no acute change, feeling well Exam/Review of Systems Vital Signs Vitals Vital Signs Date Time Temp Pulse Resp B/P Pulse Ox O2 Delivery O2 Flow Rate FiO2 01/18/17 08:11 97.6 77 17 141/78 94 01/15/17 09:53 Room Air Intake and Output 01/17/17 01/17/17 01/18/17 15:00 23:00 07:00 Intake Total 1560 ml 1440 ml Output Total 1200 ml 600 ml Balance 360 ml 840 ml Exam Physical exam General: Patient is laying in bed and answers questions appropriately Mentation: Patient is alert and oriented 4, Head: Normocephalic atraumatic Eyes: EOMI, pupils reactive to light Neck: Supple, nontender, midline Respiratory: Clear to auscultation bilaterally Cardiovascular: regular rate, no obvious murmurs Gastrointestinal: non-tender to palpation, bowel sounds heard. Neurological: Moves all extremities spontaneously Skin: L foot dorsal aspect ulcer, non purulent. R foot heel area ulcer, non- purulent. Results Result Diagram: 01/18/1752101/18/17521 Results 24 hrs Laboratory Tests Test 01/17/17 17:31 01/17/17 20:32 01/18/17 01:01 01/18/17 05:22 Bedside Glucose 136 201 114 White Blood Count 4.7 #L Red Blood Count 3.45 L Hemoglobin 10.3 L Hematocrit 29.9 L Mean Corpuscular Volume 86.7 Mean Corpuscular Hemoglobin 29.9 Mean Corpuscular Hemoglobin Concent 34.4 Red Cell Distribution Width 12.2 Platelet Count 197 Mean Platelet Volume 9.8 Neutrophils % 44.6 Lymphocytes % 32.3 Monocytes % 14.8 H Eosinophils % 7.7 H Basophils % 0.4 Nucleated Red Blood Cells % 0.0 Neutrophils # 2.1 Lymphocytes # 1.5 Monocytes # 0.7 Eosinophils # 0.4 Basophils # 0.0 Nucleated Red Blood Cells # 0.0 Sodium Level 137 Potassium Level 4.2 Chloride Level 107 Carbon Dioxide Level 27 Anion Gap 7 L Blood Urea Nitrogen 19 Creatinine 1.04 Glucose Level 145 # Calcium Level 8.7 Phosphorus Level 4.5 Magnesium Level 1.6 L Test 01/18/17 08:20 01/18/17 11:57 Bedside Glucose 106 167 Medications Medications Current Medications Ondansetron HCl (Zofran Inj) 4 mg Q6H PRN IV NAUSEA AND/OR VOMITING; Start 01/15/17 at 12:30 Morphine Sulfate (morphine) 2 mg Q4H PRN IV SEVERE PAIN LEVEL 7-10; Start 01/15 at 12:30 Bisacodyl (Dulcolax) 5 mg DAILY PRN PO CONSTIPATION; Start 01/15/17 at 12:30 Enoxaparin Sodium (Lovenox) 40 mg DAILY SC Last administered on 01/18/17 08: 26; Admin Dose 40 MG; Start 01/16/17 at 09:00 Diagnostic Test (Pha) (Accu-Chek) 1 ea 02 XX Last administered on 01/18/17 02 :20; Admin Dose 1 EA; Start 01/16/17 at 02:00 Insulin Glargine (Lantus) 12 unit QHS SC Last administered on 01/17/17 20:39 ; Admin Dose 12 UNIT; Start 01/15/17 at 21:00 Diagnostic Test (Pha) (Accu-Chek) 1 ea 02 XX Last administered on 01/18/17 02 :20; Admin Dose 1 EA; Start 01/16/17 at 02:00 Gabapentin (Neurontin) 300 mg TID PO Last administered on 01/18/17 12:02; Admin Dose 300 MG; Start 01/15/17 at 13:00 Midodrine (Proamatine) 5 mg BID@, PO Last administered on 01/17/17 08:07 ; Admin Dose 5 MG; Start 01/15/17 at 17:00 Loratadine (Claritin) 10 mg DAILY PO Last administered on 01/18/17 08:24; Admin Dose 10 MG; Start 01/16/17 at 09:00 Multivitamins/ Minerals (Theragran-M) 1 tab DAILY PO Last administered on 01/18 08:25; Admin Dose 1 TAB; Start 01/16/17 at 09:00 Miscellaneous Information 1 ea NOTE XX ; Start 01/15/17 at 13:00 Glucose (Glutose) 15 gm Q15M PRN PO DECREASED GLUCOSE; Start 01/15/17 at 13:00 Glucose (Glutose) 22.5 gm Q15M PRN PO DECREASED GLUCOSE; Start 01/15/17 at 13: 00 Dextrose (D50w Syringe) 25 ml Q15M PRN IV DECREASED GLUCOSE; Start 01/15/17 at 13:00 Dextrose (D50w Syringe) 50 ml Q15M PRN IV DECREASED GLUCOSE; Start 01/15/17 at 13:00 Glucagon (Glucagen) 1 mg Q15M PRN IM DECREASED GLUCOSE; Start 01/15/17 at 13:00 Glucose 15 gm 15 gm Q15M PRN BUCCAL DECREASED GLUCOSE; Start 01/15/17 at 13:00 Vancomycin HCl 250 ml @ 125 mls/hr Q12H IVPB Last administered on 01/18/17 02:20; Admin Dose 125 MLS/HR; Start 01/15/17 at 14:00 Sodium Chloride (1/2 NS) 1,000 ml @ 70 mls/hr [id number] IV Last administered on 01/17/17 19:42; Admin Dose 70 MLS/HR; Start 01/15/17 at 14:30 Levofloxacin (Levaquin) 500 mg DAILY@06 PO Last administered on 01/18/17 05: 38; Admin Dose 500 MG; Start 01/16/17 at 14:27 Miscellaneous Information (*Rx Drug Level Order Reminder*) VANCO TROUGH @ 1, 300 ON ... ONCE ONCE XX ; Start 01/19/17 at 13:00; Stop 01/19/17 at 13:01 EDWAR ELAM Jan 18, 2017 13:04
[2017-01-18] MEDS: SOD CHLORIDE 0.45% 1,000 ML IV SCH (13:19)
[2017-01-18] MEDS ORDERED: MAGNESIUM SULFATE 1 GM/D5W 100 ML IVPB ONE (13:30)
[2017-01-18 13:59] VITALS: BP 146/79; RESP 18
--- NOTE | 2017-01-18 18:03 | RADRPT ---
PROCEDURE: Ultrasound guidance for placement of needle in left upper extremity vein. CLINICAL INDICATION: Venous access. TECHNIQUE: Limited sonography of the left upper extremity was performed. Ultrasound images were recorded and s tored in the patient's medical record. COMPARISON: None. FINDINGS: The ultrasound images demonstrate a patent left upper extremity vein. The PICC line was inserted by the PICC line nurse. IMPRESSION: 1. Ultrasound guidance for a needle placement in a left upper extremity vein. 2. The left upper extremity vein is patent. RPTAT: QQ .Aaron Amezquita MD, MD Date Time Electronically viewed and signed by .Aaron Amezquita MD, MD on 01/18/2017 18:03 .R/
[2017-01-18 19:29] VITALS: BP 144/71; RESP 20
--- NOTE | 2017-01-18 20:37 | RADRPT ---
PROCEDURE: XR Chest. CLINICAL INDICATION: Check PICC line position. TECHNIQUE: Single frontal view. COMPARISON: 01/15/2017. FINDINGS: There is a left arm PICC line with the tip in the lower superior vena cava. The lungs are clear. The heart size is normal. There is no pleural effusion. There is no pneumothorax. IMPRESSION: 1. Left arm PICC line tip in satisfactory position. 2. Otherwise normal chest radiograph. RPTAT: QQ .Aaron Amezquita MD, MD Date Time Electronically viewed and signed by .Aaron Amezquita MD, MD on 01/18/2017 20:37 .R/
[2017-01-18] MEDS: INSULIN GLARGINE [LANtus] 3 ML PEN SC SCH (21:00)
[2017-01-19 01:44] VITALS: BP 121/66; RESP 20
[2017-01-19] MEDS: VANCOMYCIN 1 GM in NS 250 ML IVPB SCH (02:21)
[2017-01-19] MEDS: ACCU-CHEK XX SCH ×2 (02:23)
[2017-01-19] MEDS: LEVOFLOXACIN 500 MG TAB PO SCH (05:19)
[2017-01-19 05:45] LABS: BASOPHILS % 0.7 % (0.0-2.0); EOSINOPHILS # 0.3 10^3/ul (0.0-0.5); EOSINOPHILS % 5.5 % (0.0-7.0); HEMATOCRIT 34.6 % (42.0-52.0); HEMOGLOBIN 11.6 g/dl (14.0-18.0); LYMPHOCYTES # 1.6 10^3/ul (0.8-2.9); LYMPHOCYTES % 34.3 % (15.0-51.0); MEAN CORPUSCULAR HEMOGLOBIN 29.3 pg (29.0-33.0); MEAN CORPUSCULAR HGB CONC 33.5 g/dl (32.0-37.0); MEAN CORPUSCULAR VOLUME 87.4 fl (82.0-101.0); MEAN PLATELET VOLUME 9.6 fl (7.4-10.4); MONOCYTE # 0.5 10^3/ul (0.3-0.9); MONOCYTES % 9.8 % (0.0-11.0); NEUTROPHIL # 2.3 10^3/ul (1.6-7.5); NEUTROPHILS % 49.7 % (39.0-77.0); PLATELET COUNT 215 10^3/UL (140-415); RED BLOOD COUNT 3.96 10^6/ul (4.70-6.10); RED CELL DISTRIBUTION WIDTH 12.3 % (11.5-14.5); WHITE BLOOD COUNT 4.6 10^3/ul (4.8-10.8)
[2017-01-19 06:32] LABS: CALCIUM 8.9 mg/dl (8.4-10.2); CREATININE 1.05 mg/dl (0.61-1.24); MAGNESIUM 1.8 mg/dl (1.7-2.5); PHOSPHORUS 4.9 mg/dl (2.5-4.9); POTASSIUM 4.3 mmol/L (3.5-5.1)
[2017-01-19 07:24] VITALS: BP 140/81; RESP 18
[2017-01-19] MEDS: INSULIN ASPART [NOVOLOG] 3 ML PEN SC SCH ×2 (07:59→12:12)
[2017-01-19] MEDS: MIDODRINE 5 MG TAB PO SCH (08:00)
[2017-01-19] MEDS: ENOXAPARIN 40 MG/0.4 ML SYG SC SCH (08:17)
[2017-01-19] MEDS: LORATADINE 10 MG TAB PO SCH (08:31)
[2017-01-19] MEDS: MULTIVITAMINS/MINERALS TAB PO SCH (08:32)
[2017-01-19] MEDS: GABAPENTIN 300 MG CAP PO SCH ×2 (08:32→13:27)
--- NOTE | 2017-01-19 10:00 | CONS ---
Date/Time of Note Date/Time of Note DATE: 01/19/17 TIME: 09:49 Assessment/Plan Assessment/Plan Additional Assessment/Plan 46 yo male with B/L chronic wounds stable at this time with no acute need for any surgical intervention. Patient to be discharged with antibiotic recommendations per ID. Patient to continue with right foot betadine dressings and left foot collagen dressing. Limited weight bearing was discussed. Follow up next week at [facility] clinic. Consultation Date/Type/Reason Admit Date/Time Jan 16, 2017 at 14:43 Reason for Consultation Mr. Jimenez seen at bedside admitted for "subjective fevers" earlier this year. Per patient he has been having some upper respiratory symptoms. He has no white count or increase in temp at this time. He has history of chronic OM B/L feet treated with IV and Oral antibiotics per outside hospital. His wounds were last evaluated on 01/12/17 in clinic with out any sign of infection. During this admission patient has had MRI of B/L feet with possible diagnosis of OM. Unclear if this is residual OM given he has has had OM in the past and treated appropriately. At this time he has a PICC line and pending discharge home with PICC line. Social History Smoking Status: Never smoker Exam/Review of Systems Vital Signs Vitals Vital Signs Date Time Temp Pulse Resp B/P Pulse Ox O2 Delivery O2 Flow Rate FiO2 01/19/17 07:24 97.7 77 18 140/81 94 01/15/17 09:53 Room Air Intake and Output 01/18/17 01/18/17 01/19/17 15:00 23:00 07:00 Intake Total 960 ml 730 ml Output Total 1125 ml 1300 ml Balance -165 ml -570 ml Results Vasc: 2/4 DP and PT pulses B/L. neuro: protective sensation diminished B/L. derm: Right posterior heel ulcer stable with no drainage or acute sign of infection. Improving since last visit. Left dorsal midfoot ulceration stable with no sign of infection. musk/skeletal: no gross deformities noted. MRI of B/L feet report reviewed as mentioned above. Result Diagram: 01/19/17 0519 01/19/17 0510 Results 24 hrs Laboratory Tests Test 01/18/17 11:57 01/18/17 16:23 01/18/17 18:08 01/18/17 20:56 Bedside Glucose 167 145 137 228 H Test 01/19/17 02:23 01/19/17 05:10 01/19/17 05:19 01/19/17 07:58 Bedside Glucose 81 107 Sodium Level 142 Potassium Level 4.3 Chloride Level 107 Carbon Dioxide Level 29 Anion Gap 10 Blood Urea Nitrogen 21 H Creatinine 1.05 Glucose Level 91 # Calcium Level 8.9 Phosphorus Level 4.9 Magnesium Level 1.8 White Blood Count 4.6 L Red Blood Count 3.96 L Hemoglobin 11.6 L Hematocrit 34.6 L Mean Corpuscular Volume 87.4 Mean Corpuscular Hemoglobin 29.3 Mean Corpuscular Hemoglobin Concent 33.5 Red Cell Distribution Width 12.3 Platelet Count 215 Mean Platelet Volume 9.6 Neutrophils % 49.7 Lymphocytes % 34.3 Monocytes % 9.8 Eosinophils % 5.5 Basophils % 0.7 Nucleated Red Blood Cells % 0.0 Neutrophils # 2.3 Lymphocytes # 1.6 Monocytes # 0.5 Eosinophils # 0.3 Basophils # 0.0 Nucleated Red Blood Cells # 0.0 Medications Medications Current Medications Ondansetron HCl (Zofran Inj) 4 mg Q6H PRN IV NAUSEA AND/OR VOMITING; Start 01/15/17 at 12:30 Morphine Sulfate (morphine) 2 mg Q4H PRN IV SEVERE PAIN LEVEL 7-10; Start 01/15 at 12:30 Bisacodyl (Dulcolax) 5 mg DAILY PRN PO CONSTIPATION; Start 01/15/17 at 12:30 Enoxaparin Sodium (Lovenox) 40 mg DAILY SC Last administered on 01/19/17 08: 17; Admin Dose 40 MG; Start 01/16/17 at 09:00 Diagnostic Test (Pha) (Accu-Chek) 1 ea XX Last administered on 01/19/17 02 :23; Admin Dose 1 EA; Start 01/16/17 at 02:00 Insulin Glargine (Lantus) 12 unit QHS SC Last administered on 01/18/17 21:00 ; Admin Dose 12 UNIT; Start 01/15/17 at 21:00 Diagnostic Test (Pha) (Accu-Chek) 1 ea 02 XX Last administered on 01/19/17 02 :23; Admin Dose 1 EA; Start 01/16/17 at 02:00 Gabapentin (Neurontin) 300 mg TID PO Last administered on 01/19/17 08:32; Admin Dose 300 MG; Start 01/15/17 at 13:00 Midodrine (Proamatine) 5 mg BID@ PO Last administered on 01/17/17 08:07 ; Admin Dose 5 MG; Start 01/15/17 at 17:00 Loratadine (Claritin) 10 mg DAILY PO Last administered on 01/19/17 08:31; Admin Dose 10 MG; Start 01/16/17 at 09:00 Multivitamins/ Minerals (Theragran-M) 1 tab DAILY PO Last administered on 01/19 08:32; Admin Dose 1 TAB; Start 01/16/17 at 09:00 Miscellaneous Information 1 ea NOTE XX ; Start 01/15/17 at 13:00 Glucose (Glutose) 15 gm Q15M PRN PO DECREASED GLUCOSE; Start 01/15/17 at 13:00 Glucose (Glutose) 22.5 gm Q15M PRN PO DECREASED GLUCOSE; Start 01/15/17 at 13: 00 Dextrose (D50w Syringe) 25 ml Q15M PRN IV DECREASED GLUCOSE; Start 01/15/17 at 13:00 Dextrose (D50w Syringe) 50 ml Q15M PRN IV DECREASED GLUCOSE; Start 01/15/17 at 13:00 Glucagon (Glucagen) 1 mg Q15M PRN IM DECREASED GLUCOSE; Start 01/15/17 at 13:00 Glucose 15 gm 15 gm Q15M PRN BUCCAL DECREASED GLUCOSE; Start 01/15/17 at 13:00 Vancomycin HCl (Vancocin) 250 ml @ 125 mls/hr Q12H IVPB Last administered on 01/19/17 02:21; Admin Dose 125 MLS/HR; Start 01/15/17 at 14:00 Levofloxacin (Levaquin) 500 mg DAILY@06 PO Last administered on 01/19/17 05: 19; Admin Dose 500 MG; Start 01/16/17 at 14:27 Miscellaneous Information (*Rx Drug Level Order Reminder*) VANCO TROUGH @ 1, 300 ON ... ONCE ONCE XX ; Start 01/19/17 at 13:00; Stop 01/19/17 at 13:01 IV Flush (NS 10 ml) 10 ml PRN PRN IV IV PROTOCOL; Start 01/18/17 at 18:30 LIBRA GILL DPM Jan 19, 2017 10:00
[2017-01-19] MEDS ORDERED: Vancomycin Iv Per Pharmacy XX (10:14)
[2017-01-19] MEDS ORDERED: LEVO500T72 PO (10:14)
--- NOTE | 2017-01-19 10:16 | PDOCDIS ---
Discharge Instructions CONDITION Patient Condition: Stable HOME CARE INSTRUCTIONS: Special Diet: carb control diet FOLLOW UP/APPOINTMENTS Follow-up Plan 1. Take all medications as directed including IV antibiotics 2. Follow up with your director child development center next week. EDWAR ELAM Jan 19, 2017 10:16
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
[2017-01-19] MEDS ORDERED: CEFTRIAXONE 1 GM/50 ML (PMX) 50 ML IVPB SCH (14:00)
[2017-01-19 14:11] VITALS: BP 138/86; RESP 20
--- NOTE | 2017-01-22 07:47 | PN ---
DATE: 01/19/2017 SUBJECTIVE: The patient is alert, feels good. No fevers. WBC 4.6, no shift, no bands. BUN 21, creatinine 1.05. MICROBIOLOGY: Wound culture growing Proteus mirabilis, Staphylococcus aureus, corynebacterium speci es, and beta hemolytic strep species. ANTIMICROBIALS: The patient is on: 1. IV vancomycin. 2. Levaquin. PHYSICAL EXAMINATION: GENERAL: This is a well-developed, middle-aged man who is alert, in no distress. HEENT: Head atraumatic, normocephalic. Sclerae anicteric. Buccal mucosa dry. NECK: Supple. CHEST: Rise symmetrical. Breath sounds clear. HEART: S1, S2. ABDOMEN: Soft, bowel tones present. EXTREMITIES: With bilateral lower extremities chronic wounds. ASSESSMENT: 1. Bilateral lower extremity osteomyelitis. 2. Diabetes. 3. Hypertension. PLAN: We are going to change antibiotics to IV Rocephin. Patient already had a PICC line. He will go home on antibiotics for 6 weeks and follow with podiatry at the wound clinic for further recomme ndations. Dictated By: EDWIN SCOTT [employer] C[employer]TER for CHRISTOPHER RODRÍGUEZ/LEXUS Conf#: [id number] DID#: [id number]
== END 2017-01-19 16:47 | disposition home IV services (08) | DRG 638 ==
LOC: E/R 05:40 → MS2 09:41 → OBSVTOIN 01-16 14:43
PROVIDERS: ADMIT Hospitalist; ATTEND Hospitalist
PROC: 02HV33Z Insertion of Infusion Device into Superior Vena Cava, Percutaneous Approach (ICD-10-PCS; principal; 2017-01-18)
DX: E10.621 Type 1 diabetes mellitus with foot ulcer (principal); M86.9 Osteomyelitis, unspecified; E10.40 Type 1 diabetes mellitus with diabetic neuropathy, unspecified; L97.419 Non-pressure chronic ulcer of right heel and midfoot with unspecified severity; L97.429 Non-pressure chronic ulcer of left heel and midfoot with unspecified severity; L97.519 Non-pressure chronic ulcer of other part of right foot with unspecified severity; L97.529 Non-pressure chronic ulcer of other part of left foot with unspecified severity; Z79.4 Long term (current) use of insulin; I10 Essential (primary) hypertension; E10.69 Type 1 diabetes mellitus with other specified complication; E10.36 Type 1 diabetes mellitus with diabetic cataract
CPT/HCPCS: 36569; 71010; 73650; 73718; 76937; 80048; 80053; 80202; 81001; 82565; 82962; 83036; 83605; 83735; 84100; 84520; 85025; 85651; 86140; 87040; 87070; 87086; 90686; 96374; 96375; 99217; G0378; J0696; J1650; J1815; J2543; J3370; J3475; J7030

== ENCOUNTER 2017-04-23 04:37 | Emergency (ER) | END 2017-04-23 08:39 | disposition home or self-care (01) ==

== ENCOUNTER 2017-04-28 05:09 | Inpatient (IN) | END 2017-05-05 15:50 | disposition home health service (06) | DRG 291 ==